=== PATIENT | male | born 1960 | race African-American/Black ===

== ENCOUNTER 2023-07-22 13:36 | Inpatient (IN) | payer OTHER ==
[2023-07-22 14:38] VITALS: BMI 20.2
[2023-07-22] MEDS ORDERED: DICYCLOMINE HCL 10 MG CAPSULE PO PRN (15:30)
[2023-07-22] MEDS ORDERED: POLYETHYLENE GLYCOL (HEALTHYLAX) 3350 17 GM PACKET PO PRN (15:30)
[2023-07-22] MEDS ORDERED: BISMUTH SUBSALICYLATE 524 MG/30 ML PO PRN (15:30)
[2023-07-22] MEDS ORDERED: cloNIDine HCL 0.1 MG TABLET PO ONE ×2 (15:30→18:30)
[2023-07-22] MEDS ORDERED: IBUPROFEN 400 MG TABLET (FP) PO PRN (15:30)
[2023-07-22] MEDS ORDERED: BUPRENORPHINE HCL 150 MCG, BUPRENORPHINE HCL 75 MCG BC ONE (15:30)
[2023-07-22] MEDS ORDERED: MAG HYDROX/AL HYDROX/SIMETH 30 ML UNIT-DOSE CUP PO PRN (15:30)
[2023-07-22] MEDS ORDERED: BENZONATATE 200 MG CAPSULE PO PRN (15:30)
[2023-07-22] MEDS ORDERED: BENZOCAINE/MENTHOL (CHLORASEPTIC ) LOZENGE MM PRN (15:30)
[2023-07-22] MEDS ORDERED: NALOXONE HCL (KLOXXADO) 8 MG SPRAY NS PRN (15:30)
[2023-07-22] MEDS ORDERED: LOPERAMIDE HCL 2 MG CAPSULE PO PRN (15:30)
[2023-07-22] MEDS ORDERED: MAGNESIUM HYDROX 2400MG/30ML ORAL SUSPENSION 30 ML CUP PO PRN (15:30)
[2023-07-22] MEDS ORDERED: NICOTINE POLACRILEX 2 MG GUM BUC PRN (15:30)
[2023-07-22] MEDS ORDERED: ONDANSETRON *ODT* 4 MG TABLET SL PRN (15:30)
[2023-07-22] MEDS ORDERED: IBUPROFEN 600 MG TABLET (FP) PO PRN (15:30)
[2023-07-22] MEDS ORDERED: NALOXONE HCL 0.4 MG/ML VIAL IM PRN (15:30)
[2023-07-22] MEDS ORDERED: guaiFENesin 600 MG TABLET.ER (FP) PO PRN (15:30)
[2023-07-22] MEDS ORDERED: ACETAMINOPHEN 325 MG TABLET (FP) PO PRN (15:30)
[2023-07-22] MEDS ORDERED: METHOCARBAMOL 500 MG TABLET PO PRN (15:30)
[2023-07-22] MEDS ORDERED: BUPRENORPHINE HCL 150 MCG, BUPRENORPHINE HCL 75 MCG BC PRN (15:30)
[2023-07-22] MEDS ORDERED: cloNIDine HCL 0.1 MG TABLET ONE (18:13)
[2023-07-22] MEDS: diazePAM 5 MG TABLET PO PRN (19:15)
[2023-07-22] MEDS: LISINOPRIL 20 MG TABLET PO SCH (19:16)
[2023-07-22] MEDS: PRENATAL VITAMINS W/ FOLIC ACID TABLET (FP) PO SCH (19:30)
[2023-07-22] MEDS: cloNIDine HCL 0.1 MG TABLET PO PRN (22:39)
[2023-07-22] MEDS: MELATONIN 5 MG TABLETS PO SCH (22:39)
[2023-07-22] MEDS: THIAMINE HCL 100 MG TABLET (FP) PO SCH (22:39)
[2023-07-23] MEDS ORDERED: BUPRENORPHINE HCL 150 MCG, BUPRENORPHINE HCL 75 MCG BC PRN
[2023-07-23] MEDS: cloNIDine HCL 0.1 MG TABLET PO PRN ×4 (03:19→23:11)
[2023-07-23] MEDS: diazePAM 5 MG TABLET PO PRN ×3 (03:19→19:09)
[2023-07-23] MEDS: BUPRENORPHINE HCL 150 MCG, BUPRENORPHINE HCL 75 MCG BC SCH ×2 (06:02→17:28)
[2023-07-23] MEDS: BICTEGRAV/EMTRICIT/TENOFOV (BIKTARVY) 50-200-25 MG TABLET PO SCH (07:12)
[2023-07-23] MEDS: hydrOXYzine PAMOATE 25 MG CAPSULE (FP) PO PRN (09:21)
[2023-07-23 10:02] LABS: HEMATOCRIT 37.7 % (35.4-49); HEMOGLOBIN 12.6 GM/dL (11.7-16.9); MCH 26.7 pg (25.7-33.7); MCHC 33.4 g/dl (32.0-35.9); MEAN CELL VOLUME 80.1 fl (80-96); MEAN PLT VOLUME 7.8 fl (7.5-11.1); PLATELET COUNT 313 10^3/uL (134-434); RBC 4.71 M/mm3 (4.00-5.60); RDW 15.7 % (11.9-15.9); WHITE BLOOD COUNT 4.7 K/mm3 (4.0-10.0)
[2023-07-23] MEDS: LISINOPRIL 20 MG TABLET PO SCH (10:27)
[2023-07-23 10:28] LABS: CHLORIDE 100 mmol/L (98-107); POTASSIUM 3.7 mmol/L (3.5-5.1); SODIUM 138 mmol/L (136-145)
[2023-07-23] MEDS: PRENATAL VITAMINS W/ FOLIC ACID TABLET (FP) PO SCH (10:28)
[2023-07-23] MEDS: HYDROCHLOROTHIAZIDE 12.5 MG CAPSULE (FP) PO SCH (10:28)
[2023-07-23 10:32] LABS: ALBUMIN 2.8 g/dl (3.4-5.0); ANION GAP 5 mmol/L (4-13); BLOOD UREA NITROGEN 17.7 mg/dL (7-18); CO2 33 mmol/L (21-32); GLUCOSE,RANDOM 136 mg/dL (74-106)
[2023-07-23 10:35] LABS: CREATININE 0.8 mg/dL (0.55-1.3); SGOT/AST 10 U/L (15-37); SGPT/ALT 16 U/L (13-61)
[2023-07-23 10:36] LABS: BILIRUBIN,TOTAL 0.3 mg/dL (0.2-1); TOT PROT 6.9 g/dl (6.4-8.2)
[2023-07-23 10:38] LABS: ALK PHOS 53 U/L (45-117)
[2023-07-23] MEDS: THIAMINE HCL 100 MG TABLET (FP) PO SCH (22:50)
[2023-07-23] MEDS: MELATONIN 5 MG TABLETS PO SCH (22:50)
[2023-07-24] MEDS: diazePAM 5 MG TABLET PO PRN ×2 (04:09→10:26)
[2023-07-24] MEDS: hydrOXYzine PAMOATE 25 MG CAPSULE (FP) PO PRN (04:09)
[2023-07-24] MEDS: cloNIDine HCL 0.1 MG TABLET PO PRN (04:09)
[2023-07-24] MEDS ORDERED: BUPRENORPHINE HCL 450 MCG FILM BC SCH (06:00)
[2023-07-24] MEDS: BICTEGRAV/EMTRICIT/TENOFOV (BIKTARVY) 50-200-25 MG TABLET PO SCH (07:36)
[2023-07-24] MEDS: PRENATAL VITAMINS W/ FOLIC ACID TABLET (FP) PO SCH (10:25)
[2023-07-24] MEDS: HYDROCHLOROTHIAZIDE 12.5 MG CAPSULE (FP) PO SCH (10:25)
[2023-07-24] MEDS: LISINOPRIL 20 MG TABLET PO SCH (10:25)
[2023-07-24 11:58] VITALS: TEMP 97.4
[2023-07-24 13:03] VITALS: BP 109/64; PULSE 103; RESP 16
[2023-07-25] MEDS ORDERED: BUPRENORPHINE/NALOXONE 4 MG/1 MG FILM PACKET SL SCH (06:00)
[2023-07-26] MEDS ORDERED: BUPRENORPHINE/NALOXONE 8 MG/2 MG FILM PACKET SL ONE (06:00)
== END 2023-07-24 14:10 | disposition left against medical advice (07) | DRG 770 ==
LOC: YASAS 13:36 → Y3N 16:24
PROVIDERS: ADMIT Allergy & Immunology; ATTEND Allergy & Immunology
PROC: HZ2ZZZZ Detoxification Services for Substance Abuse Treatment (ICD-10-PCS; principal; 2023-07-22)
DX: F11.23 Opioid dependence with withdrawal (principal); F14.10 Cocaine abuse, uncomplicated; B20 Human immunodeficiency virus [HIV] disease; I11.0 Hypertensive heart disease with heart failure; I50.9 Heart failure, unspecified; Z28.310 Unvaccinated for COVID-19; Z28.9 Immunization not carried out for unspecified reason; Z59.00 Homelessness unspecified; Z72.0 Tobacco use; Z79.899 Other long term (current) drug therapy
CPT/HCPCS: 36415; 71045-TC-FY; 80053; 80307; 85027; 86780; 87635; 87811; 93005; 93010

== ENCOUNTER 2023-09-11 18:23 | Inpatient (IN) | payer OTHER ==
[2023-09-11 20:10] VITALS: BMI 23.6
[2023-09-11] MEDS ORDERED: BENZOCAINE/MENTHOL (CHLORASEPTIC ) LOZENGE MM PRN (21:03)
[2023-09-11] MEDS ORDERED: NALOXONE HCL 0.4 MG/ML VIAL IM PRN (21:03)
[2023-09-11] MEDS ORDERED: BISACODYL 5 MG TABLET.DR (FP) PO PRN (21:03)
[2023-09-11] MEDS ORDERED: DOCUSATE SODIUM 100 MG CAPSULE (FP) PO PRN (21:03)
[2023-09-11] MEDS ORDERED: ACETAMINOPHEN 325 MG TABLET (FP) PO PRN (21:03)
[2023-09-11] MEDS ORDERED: BENZONATATE 200 MG CAPSULE PO PRN (21:03)
[2023-09-11] MEDS ORDERED: IBUPROFEN 400 MG TABLET (FP) PO PRN (21:03)
[2023-09-11] MEDS ORDERED: guaiFENesin 600 MG TABLET.ER (FP) PO PRN (21:03)
[2023-09-11] MEDS ORDERED: MAGNESIUM HYDROX 2400MG/30ML ORAL SUSPENSION 30 ML CUP PO PRN (21:03)
[2023-09-11] MEDS ORDERED: POLYETHYLENE GLYCOL (HEALTHYLAX) 3350 17 GM PACKET PO PRN (21:03)
[2023-09-11] MEDS ORDERED: NALOXONE HCL (KLOXXADO) 8 MG SPRAY NS PRN (21:03)
[2023-09-11] MEDS ORDERED: LOPERAMIDE HCL 2 MG CAPSULE PO PRN (21:03)
[2023-09-11] MEDS ORDERED: MAG HYDROX/AL HYDROX/SIMETH 30 ML UNIT-DOSE CUP PO PRN (21:03)
[2023-09-11] MEDS: GABAPENTIN 300 MG CAPSULE PO SCH (22:34)
[2023-09-11] MEDS: MELATONIN 5 MG TABLETS PO SCH (22:34)
[2023-09-11] MEDS: THIAMINE HCL 100 MG TABLET (FP) PO SCH (22:34)
[2023-09-11] MEDS: SENNOSIDES 8.6MG TABLET (FP) PO SCH (22:35)
[2023-09-11] MEDS: cloNIDine HCL 0.1 MG TABLET PO PRN (22:35)
[2023-09-11] MEDS: CEPHALEXIN MONOHYDRATE 500 MG CAPSULE (UD) PO SCH (23:04)
[2023-09-12 03:34] LABS: URINE APPEARANCE CLEAR; URINE BILIRUBIN NEGATIVE (NEGATIVE); URINE COLOR YELLOW; URINE GLUCOSE (UA) NEGATIVE (NEGATIVE); URINE KETONE NEGATIVE (NEGATIVE); URINE LEUK ESTERASE NEGATIVE (NEGATIVE); URINE NITRITE NEGATIVE (NEGATIVE); URINE PROTEIN NEGATIVE (NEGATIVE); URINE UROBILINOGEN 0.2 mg/dL (0.2-1.0)
[2023-09-12] MEDS: methaDONE 40 MG, methaDONE 20 MG PO SCH (05:23)
[2023-09-12] MEDS ORDERED: methaDONE HCL 40 MG DISPERSABLE TABLET PO SCH (06:00)
[2023-09-12] MEDS: BICTEGRAV/EMTRICIT/TENOFOV (BIKTARVY) 50-200-25 MG TABLET PO SCH (10:15)
[2023-09-12] MEDS: LISINOPRIL 20 MG TABLET PO SCH (10:15)
[2023-09-12] MEDS: DOXYCYCLINE HYCLATE 100 MG TABLET PO SCH (10:15)
[2023-09-12] MEDS: HYDROCHLOROTHIAZIDE 12.5 MG CAPSULE (FP) PO SCH (10:15)
[2023-09-12] MEDS: FOLIC ACID 1 MG TABLET (FP) PO SCH (10:15)
[2023-09-12] MEDS: NICOTINE 7 MG/24 HOURS TOPICAL PATCH TD SCH (10:16)
[2023-09-12] MEDS: PRENATAL VITAMINS W/ FOLIC ACID TABLET (FP) PO SCH (10:16)
[2023-09-12] MEDS: PETROLATUM, WHITE 30 GM TUBE TP SCH (10:16)
[2023-09-12 12:02] LABS: HEMOGLOBIN 11.4 GM/dL (11.7-16.9); MCH 26.6 pg (25.7-33.7); MCHC 32.5 g/dl (32.0-35.9); MEAN PLT VOLUME 8.1 fl (7.5-11.1); PLATELET COUNT 184 10^3/uL (134-434); RBC 4.27 M/mm3 (4.00-5.60); RDW 17.8 % (11.9-15.9); WHITE BLOOD COUNT 2.9 K/mm3 (4.0-10.0)
[2023-09-12 12:10] LABS: POTASSIUM 4.4 mmol/L (3.5-5.1)
[2023-09-12 12:17] LABS: ALBUMIN 3.4 g/dl (3.4-5.0); CALCIUM 9.4 mg/dL (8.5-10.1)
[2023-09-12 12:20] LABS: CREATININE 0.8 mg/dL (0.55-1.3)
[2023-09-12 12:21] LABS: BILIRUBIN,TOTAL 0.5 mg/dL (0.2-1); TOT PROT 6.9 g/dl (6.4-8.2)
[2023-09-12] MEDS: IBUPROFEN 600 MG TABLET (FP) PO PRN (14:50)
[2023-09-12] MEDS: QUEtiapine FUMARATE 100 MG TABLET (FP) PO SCH (22:08)
[2023-09-15] MEDS: LIDOCAINE 4% PATCH TP SCH (09:58)
[2023-09-15 15:18] LABS: PH,URINE 5.5 (5.0-8.0); URINE APPEARANCE CLEAR; URINE BILIRUBIN 1+ (NEGATIVE); URINE COLOR DK YELLOW; URINE GLUCOSE (UA) NEGATIVE (NEGATIVE); URINE KETONE TRACE (NEGATIVE); URINE LEUK ESTERASE NEGATIVE (NEGATIVE); URINE NITRITE NEGATIVE (NEGATIVE); URINE PROTEIN NEGATIVE (NEGATIVE); URINE UROBILINOGEN 0.2 mg/dL (0.2-1.0)
[2023-09-15] MEDS: LIDOCAINE PATCH REMOVAL MC SCH (21:12)
[2023-09-17] MEDS: HYDROCHLOROTHIAZIDE 12.5 MG CAPSULE (FP) PO SCH (14:05)
[2023-09-25] MEDS: HYDROCHLOROTHIAZIDE 25 MG TABLET (FP) PO SCH (17:00)
[2023-09-27] MEDS ORDERED: HYDROCHLOROTHIAZIDE 25 MG TABLET (FP) PO SCH (06:00)
[2023-09-27] MEDS: HYDROCHLOROTHIAZIDE 25 MG TABLET (FP) PO SCH (06:48)
[2023-09-28] MEDS ORDERED: BACITRACIN 0.9 GM PACKET ONE (22:50)
[2023-10-02 05:43] VITALS: RESP 17; TEMP 97.3
[2023-10-02 10:09] VITALS: BP 156/103; PULSE 102
== END 2023-10-02 11:03 | disposition home or self-care (01) | DRG 772 ==
LOC: YASAS 18:23 → Y3NR 20:46 → Y5N 09-14 09:26
PROVIDERS: ADMIT Allergy & Immunology; ATTEND Psychiatry & Neurology Pain Medicine
PROC: HZ42ZZZ Group Counseling for Substance Abuse Treatment, Cognitive-Behavioral (ICD-10-PCS; principal; 2023-09-11)
DX: F11.20 Opioid dependence, uncomplicated (principal); Z21 Asymptomatic human immunodeficiency virus [HIV] infection status; G47.00 Insomnia, unspecified; I11.0 Hypertensive heart disease with heart failure; I50.9 Heart failure, unspecified; M17.0 Bilateral primary osteoarthritis of knee; R60.0 Localized edema; R26.89 Other abnormalities of gait and mobility; Z86.59 Personal history of other mental and behavioral disorders; Z87.39 Personal history of other diseases of the musculoskeletal system and connective tissue; Z89.021 Acquired absence of right finger(s); Z87.891 Personal history of nicotine dependence; Z99.89 Dependence on other enabling machines and devices; Z59.00 Homelessness unspecified
CPT/HCPCS: 36415; 80053; 81003; 85027; 86780